=== PATIENT | female | born 1990 | race Caucasian/White ===

== ENCOUNTER 2018-02-02 10:24 | Inpatient (IN) | payer BC ==
[2018-02-02] MEDS ORDERED: Oxytocin/Lactated Ringers 10 UNIT/1,000 ML BAG IV SCH ×2 (12:00)
[2018-02-02] MEDS ORDERED: Ondansetron 4 MG/2 ML SDV IVPUSH PRN ×2 (12:00→15:28)
[2018-02-02] MEDS ORDERED: Nalbuphine 20 MG/1 ML Amp IVPUSH PRN (12:00)
[2018-02-02] MEDS ORDERED: Sodium Chloride 0.9% 10 ML Syringe FLUSH PRN (12:00)
--- NOTE | 2018-02-02 12:03 | PCM.LDHP ---
L&D History of Present Illness - General Date of Service: 02/02/18 Admit Problem/Dx: Patient Status Order with Admit Dx/Problem 02/02/18 11:01 Patient Status [ADT] Routine 02/02/18 12:01 Patient Status [ADT] Routine Admission Diagnosis/Problem Admission Diagnosis/Problem Source of Information: Patient History Limitations: Reports: No Limitations - History of Present Illness Introduction:: Patient is a 27 y/o at 37 6/7 wks who presents to L&D after clinic appointment due to findings of mild range BP in clinic. Doing well. No headaches, vision changes, or RUQ pain. No other concerns - Related Data Allergies/Adverse Reactions: Allergies Allergy/AdvReac Type Severity Reaction Status Date / Time No Known Allergies Allergy Verified 02/02/18 10:45 Past Medical History Genitourinary History: Reports: Pyelonephritis (2009) [employer] History: Reports: : 2 Para: 1 LMP (Approximate): Psychiatric History: Reports: Depression Social & Family History - Tobacco Use Smoking Status *Q: Former Smoker - Alcohol Use Alcohol Use History: No - Recreational Drug Use Recreational Drug Use: No H&P Review of Systems - Review of Systems: Review Of Systems: See Below General: Reports: No Symptoms Pulmonary: Reports: No Symptoms Cardiovascular: Reports: No Symptoms Gastrointestinal: Reports: No Symptoms Genitourinary: Reports: No Symptoms Musculoskeletal: Reports: No Symptoms Psychiatric: Reports: No Symptoms Neurological: Reports: No Symptoms L&D Exam - Exam Exam: See Below - Vital Signs Vital Signs: Last Vital Signs Temp Pulse 100 02/02/18 10:35 Resp BP 137/93 H 02/02/18 10:35 Pulse Ox Weight: 93.894 kg - OB Specific Contraction Intensity: Irritability Movement: Active Heart Tones: Present Heart Tones per Min: 140 Heart Rate (FHR) Variability: Moderate (6-25 bmp) Presentation: Vertex - Link Score Link Score Cervix Position: Posterior Link Score Consistency: Soft Link Score Effacement: 51-70% Link Score Dilation: 1-2 cm Link Score Infant's Station: -2 Link Score Total: 6 - Exam General: Alert, Oriented, Cooperative Lungs: Clear to Auscultation, Normal Respiratory Effort Cardiovascular: Regular Rate, Regular Rhythm GI/Abdominal Exam: Soft, Non-Tender Genitourinary: Normal external exam Extremities: Normal Inspection Skin: Warm, Dry, Intact - Patient Data Lab Results Last 24 hrs: Laboratory Results - last 24 hr 02/02/18 02/02/18 02/02/18 Range/Units 11:15 11:15 11:15 WBC 10.24 H (3.98-10.04) K/mm3 RBC 4.04 (3.98-5.22) M/mm3 Hgb 11.6 (11.2-15.7) gm/L Hct 34.7 (34.1-44.9) % MCV 85.9 (79.4-94.8) fl MCH 28.7 (25.6-32.2) pg MCHC 33.4 (32.2-35.5) g/dl RDW Std Deviation 41.5 (36.4-46.3) fL Plt Count 212 (182-369) K/mm3 MPV 9.5 (9.4-12.3) fl Creatinine 0.4 L (0.55-1.02) mg/dL Est Cr Clr Drug Dosing 188.42 mL/min Estimated GFR (MDRD) > 60 (>60) mL/min AST 10 L (15-37) U/L ALT 14 (14-59) U/L Urine Color (Yellow) Urine Appearance (Clear) Urine pH (5.0-8.0) Ur Specific [place] (1.005-1.030) Urine Protein (Negative) Urine Glucose (UA) (Negative) Urine Ketones (Negative) Urine Occult Blood (Negative) Urine Nitrite (Negative) Urine Bilirubin (Negative) Urine Urobilinogen (0.2-1.0) Ur Leukocyte Esterase (Negative) Blood Type O POSITIVE 02/02/18 Range/Units 11:20 WBC (3.98-10.04) K/mm3 RBC (3.98-5.22) M/mm3 Hgb (11.2-15.7) gm/L Hct (34.1-44.9) % MCV (79.4-94.8) fl MCH (25.6-32.2) pg MCHC (32.2-35.5) g/dl RDW Std Deviation (36.4-46.3) fL Plt Count (182-369) K/mm3 MPV (9.4-12.3) fl Creatinine (0.55-1.02) mg/dL Est Cr Clr Drug Dosing mL/min Estimated GFR (MDRD) (>60) mL/min AST (15-37) U/L ALT (14-59) U/L Urine Color Light yellow (Yellow) Urine Appearance Cloudy H (Clear) Urine pH 8.0 (5.0-8.0) Ur Specific [place] 1.020 (1.005-1.030) Urine Protein Negative (Negative) Urine Glucose (UA) Negative (Negative) Urine Ketones Negative (Negative) Urine Occult Blood Negative (Negative) Urine Nitrite Negative (Negative) Urine Bilirubin Negative (Negative) Urine Urobilinogen 0.2 (0.2-1.0) Ur Leukocyte Esterase 2+ H (Negative) Blood Type Result Diagrams: 02/02/18 11:15 02/02/18 11:15 - Problem List (1) 37 weeks gestation of SNOMED Code(s): 82627485 ICD Code: Z3A.37 - 37 WEEKS GESTATION OF Status: Acute Current Visit: Yes (2) Gestational hypertension SNOMED Code(s): 03708376 ICD Code: O13.9 - GESTATIONAL HTN W/O SIGNIFICANT PROTEINURIA, UNSP TRIMESTER Status: Acute Current Visit: Yes (3) Rubella non-immune status, antepartum SNOMED Code(s): 257883577 ICD Code: O99.89 - OTH DISEASES AND CONDITIONS COMPL PREG/CHLDBRTH; Z28.3 - UNDERIMMUNIZATION STATUS Status: Acute Current Visit: Yes Problem List Initiated/Reviewed/Updated: Yes Orders Last 24hrs: Active Orders 24 hr Category Date Time Status Patient Status [ADT] Routine ADT 02/02/18 11:01 Active Patient Status [ADT] Routine ADT 02/02/18 12:01 Ordered Activity as Tolerated [RC] PFP Care 02/02/18 12:00 Ordered Communication Order [RC] ASDIRECTED Care 02/02/18 12:00 Ordered Communication Order [RC] ASDIRECTED Care 02/02/18 12:00 Ordered Communication Order [RC] ASDIRECTED Care 02/02/18 12:00 Ordered Heart Tones [RC] ASDIRECTED Care 02/02/18 12:00 Ordered Monitoring [RC] INTERMITTENT Care 02/02/18 12:00 Ordered Non Stress Test [RC] PER UNIT ROUTINE Care 02/02/18 11:01 Active Notify Provider [RC] ASDIRECTED Care 02/02/18 12:00 Ordered Notify Provider [RC] PRN Care 02/02/18 12:00 Ordered Peripheral IV Care [RC] . DIRECTED Care 02/02/18 12:00 Ordered Pump Management, Intrathecal [RC] ASDIRECTED Care 02/02/18 12:00 Ordered Up ad Nancy [RC] ASDIRECTED Care 02/02/18 12:00 Ordered Vaginal Exam [RC] ASDIRECTED Care 02/02/18 12:00 Ordered Vital Signs [RC] ASDIRECTED Care 02/02/18 12:00 Ordered Vital Signs [RC] PER UNIT ROUTINE Care 02/02/18 11:01 Active Vital Signs [RC] PER UNIT ROUTINE Care 02/02/18 12:00 Ordered Regular Diet [DIET] Diet 02/02/18 Lunch Ordered PATIENT RETYPE [BBK] Routine Lab 02/02/18 11:15 Results TYPE AND SCREEN [BBK] Routine Lab 02/02/18 11:15 Received UA W/MICROSCOPIC [URIN] Routine Lab 02/02/18 11:20 Ordered Lactated Ringers [Ringers, Lactated] 1,000 ml Med 02/02/18 12:00 Ordered IV ASDIRECTED Nalbuphine [Nubain] Med 02/02/18 12:00 Ordered 10 mg IVPUSH Q2H PRN Ondansetron [Zofran] Med 02/02/18 12:00 Ordered 4 mg IVPUSH Q4H PRN Oxytocin/Lactated Ringers [Pitocin in LR 10 Units/1,000 Med 02/02/18 12:00 Ordered ML] 10 unit in 1,000 ml IV .CONTINUOUS Oxytocin/Lactated Ringers [Pitocin in LR 10 Units/1,000 Med 02/02/18 12:00 Ordered ML] 10 unit in 1,000 ml IV TITRATE Sodium Chloride 0.9% [Saline Flush] Med 02/02/18 12:00 Ordered 10 ml FLUSH ASDIRECTED PRN Electronic Heart Tones Ext w TOCO [WOMSER] Oth 02/02/18 12:00 Ordered Routine Electronic Heart Tones Internal [WOMSER] Per Unit Oth 02/02/18 12:00 Ordered Routine Peripheral IV Insertion Adult [OM.PC] Routine Oth 04/10/18 12:00 Ordered Resuscitation Status Routine Resus Stat 02/02/18 11:01 Ordered Assessment/Plan Comment:: 27 y/o at 37 6/7 wks presents for further monitoring after findings of mild range BP in clinic. Continues to have mild range pressures in addition to multiple upper and of normal blood pressures. Reviewed given current gestational age and findings over the last few weeks of upward trend in blood pressures would recommend moving forward with induction of labor for gestational hypertension. She agrees. Labs done and within normal limits. Plan for Pitocin for induction with eventual AROM as needed. GBS negative, no need for antibiotics. Pain management per patient preference. Anticipate .
[2018-02-02] MEDS: Lactated Ringers 1,000 ML IV SCH ×2 (13:15→18:15)
[2018-02-02] MEDS ORDERED: Calcium Carbonate 500 MG Tab.Chew PO PRN (14:17)
[2018-02-02] MEDS ORDERED: diphenhydrAMINE 50 MG/ML SDV IVPUSH PRN (15:28)
[2018-02-02] MEDS ORDERED: fentaNYL 100 MCG/2 ML SDV EPIDUR PRN (15:28)
[2018-02-02] MEDS ORDERED: ePHEDrine 50 MG/ML SDV IVPUSH PRN (15:28)
[2018-02-02] MEDS ORDERED: Bupivacaine/fentaNYL/NS 100 ML Bag EPIDUR SCH (15:30)
--- NOTE | 2018-02-02 15:49 | PCM.PREANE ---
Preanesthetic Assessment - Anesthesia/Transfusion/Family Hx Anesthesia History: No Prior Anesthesia Family History of Anesthesia Reaction: No - Review of Systems General: No Symptoms Pulmonary: No Symptoms Cardiovascular: No Symptoms Gastrointestinal: No Symptoms Neurological: Paresthesia Other: Reports: None - Physical Assessment Pulse: 99 O2 Sat by Pulse Oximetry: 99 Respiratory Rate: 15 Blood Pressure: 138/92 Vital Signs: Last Vital Signs Temp 36.2 C 02/02/18 11:01 Pulse 99 02/02/18 13:02 Resp BP 138/92 H 02/02/18 13:02 Pulse Ox Height: 1.65 m Weight: 93.894 kg ASA Class: 2 Mental Status: Alert & Oriented x3 Airway Class: Mallampati = 2 Dentition: Reports: Normal Dentition Thyro-Mental Finger Breadths: 3 Mouth Opening Finger Breadths: 3 ROM/Head Extension: Full Lungs: Clear to Auscultation, Normal Respiratory Effort Cardiovascular: Regular Rate, Regular Rhythm - Lab Values: Laboratory Last Values WBC 10.24 K/mm3 (3.98-10.04) H 02/02/18 11:15 RBC 4.04 M/mm3 (3.98-5.22) 02/02/18 11:15 Hgb 11.6 gm/L (11.2-15.7) 02/02/18 11:15 Hct 34.7 % (34.1-44.9) 02/02/18 11:15 MCV 85.9 fl (79.4-94.8) 02/02/18 11:15 MCH 28.7 pg (25.6-32.2) 02/02/18 11:15 MCHC 33.4 g/dl (32.2-35.5) 02/02/18 11:15 RDW Std Deviation 41.5 fL (36.4-46.3) 02/02/18 11:15 Plt Count 212 K/mm3 (182-369) 02/02/18 11:15 MPV 9.5 fl (9.4-12.3) 02/02/18 11:15 Creatinine 0.4 mg/dL (0.55-1.02) L 02/02/18 11:15 Est Cr Clr Drug Dosing 188.42 mL/min 02/02/18 11:15 Estimated GFR (MDRD) > 60 mL/min (>60) 02/02/18 11:15 AST 10 U/L (15-37) L 02/02/18 11:15 ALT 14 U/L (14-59) 02/02/18 11:15 Urine Color Light yellow (Yellow) 02/02/18 11:20 Urine Appearance Cloudy (Clear) H 02/02/18 11:20 Urine pH 8.0 (5.0-8.0) 02/02/18 11:20 Ur Specific [place] 1.020 (1.005-1.030) 02/02/18 11:20 Urine Protein Negative (Negative) 02/02/18 11:20 Urine Glucose (UA) Negative (Negative) 02/02/18 11:20 Urine Ketones Negative (Negative) 02/02/18 11:20 Urine Occult Blood Negative (Negative) 02/02/18 11:20 Urine Nitrite Negative (Negative) 02/02/18 11:20 Urine Bilirubin Negative (Negative) 02/02/18 11:20 Urine Urobilinogen 0.2 (0.2-1.0) 02/02/18 11:20 Ur Leukocyte Esterase 2+ (Negative) H 02/02/18 11:20 Urine RBC 0-5 /hpf (0-5) 02/02/18 11:20 Urine WBC 5-10 /hpf (0-5) H 02/02/18 11:20 Ur Epithelial Cells 0-5 /hpf (0-5) 02/02/18 11:20 Amorphous Sediment Moderate /hpf (NOT SEEN) H 02/02/18 11:20 Urine Bacteria Many /hpf (FEW) H 02/02/18 11:20 Urine Mucus Not seen /hpf (FEW) 02/02/18 11:20 Blood Type O POSITIVE 02/02/18 11:15 Gel Antibody Screen Negative 02/02/18 11:15 - Allergies Allergies/Adverse Reactions: Allergies Allergy/AdvReac Type Severity Reaction Status Date / Time No Known Allergies Allergy Verified 02/02/18 10:45 - Acknowledgements Anesthesia Type Planned: Epidural Pt an Appropriate Candidate for the Planned Anesthesia: Yes Alternatives and Risks of Anesthesia Discussed w Pt/Guardian: Yes Pt/Guardian Understands and Agrees with Anesthesia Plan: Yes Additional Comments: Sandei states her last epidural didn't work. She had a numb/tingling sensation to her leg, but no other pain control/numbness. PreAnesthesia Questionnaire - Past Health History Medical/Surgical History: Denies Medical/Surgical History Cardiovascular History: Reports: Hypertension Genitourinary History: Reports: Pyelonephritis (2010) [employer] History: Reports: Psychiatric History: Reports: Depression - Past Surgical History Cardiovascular Surgical History: Reports: None - SUBSTANCE USE Smoking Status *Q: Never Smoker Second Hand Smoke Exposure: No Recreational Drug Use History: No - CURRENT (IN HOUSE) MEDS Current Meds: Current Medications Calcium Carbonate/Glycine (Tums) 1,000 mg PO Q2H PRN PRN Reason: Indigestion Last Admin: 02/02/18 14:24 Dose: 1,000 mg Diphenhydramine HCl (Benadryl) 25 mg IVPUSH Q6H PRN PRN Reason: Pruritis Ephedrine Sulfate (Ephedrine Sulfate) 5 mg IVPUSH ASDIRECTED PRN PRN Reason: Hypotension Fentanyl (Sublimaze) 100 mcg EPIDUR ONETIME PRN PRN Reason: Pain Fentanyl/Bupivacaine HCl (Fentanyl/Bupivacaine/Ns 2 Mcg-0.125% 100 Ml) 100 ml EPIDUR ASDIRECTED MARIKA Lactated Ringer's (Ringers, Lactated) 1,000 mls @ 40 mls/hr IV ASDIRECTED MARIKA Last Admin: 02/02/18 13:15 Dose: 40 mls/hr Oxytocin/Lactated Ringer's (Pitocin In Lr 10 Units/1,000 Ml) 10 unit in 1,000 mls @ 12 mls/hr IV TITRATE MARIKA; Protocol Last Titration: 02/02/18 15:05 Dose: 6 munits/min, 36 mls/hr Oxytocin/Lactated Ringer's (Pitocin In Lr 10 Units/1,000 Ml) 10 unit in 1,000 mls @ 500 mls/hr IV .CONTINUOUS MARIKA Nalbuphine HCl (Nubain) 10 mg IVPUSH Q2H PRN PRN Reason: Pain (moderate 4-6) Ondansetron HCl (Zofran) 4 mg IVPUSH Q4H PRN PRN Reason: Nausea/Vomiting Ondansetron HCl (Zofran) 4 mg IVPUSH ONETIME PRN PRN Reason: Nausea/Vomiting Sodium Chloride (Saline Flush) 10 ml FLUSH ASDIRECTED PRN PRN Reason: Keep Vein Open Last Admin: 02/02/18 13:15 Dose: 10 ml
--- NOTE | 2018-02-02 16:24 | PCM.PNLD ---
Labor Progress Note - VS & Meds Vital Signs: Last Vital Signs Temp 36.2 C 02/02/18 11:01 Pulse 99 02/02/18 15:49 Resp 15 02/02/18 15:49 BP 138/92 H 02/02/18 15:49 Pulse Ox 99 02/02/18 15:49 Active Medications: Current Medications Calcium Carbonate/Glycine (Tums) 1,000 mg PO Q2H PRN PRN Reason: Indigestion Last Admin: 02/02/18 14:24 Dose: 1,000 mg Diphenhydramine HCl (Benadryl) 25 mg IVPUSH Q6H PRN PRN Reason: Pruritis Ephedrine Sulfate (Ephedrine Sulfate) 5 mg IVPUSH ASDIRECTED PRN PRN Reason: Hypotension Fentanyl (Sublimaze) 100 mcg EPIDUR ONETIME PRN PRN Reason: Pain Fentanyl/Bupivacaine HCl (Fentanyl/Bupivacaine/Ns 2 Mcg-0.125% 100 Ml) 100 ml EPIDUR ASDIRECTED MARIKA Lactated Ringer's (Ringers, Lactated) 1,000 mls @ 40 mls/hr IV ASDIRECTED MARIKA Last Admin: 02/02/18 13:15 Dose: 40 mls/hr Oxytocin/Lactated Ringer's (Pitocin In Lr 10 Units/1,000 Ml) 10 unit in 1,000 mls @ 12 mls/hr IV TITRATE MARIKA; Protocol Last Titration: 02/02/18 16:03 Dose: 8 munits/min, 48 mls/hr Oxytocin/Lactated Ringer's (Pitocin In Lr 10 Units/1,000 Ml) 10 unit in 1,000 mls @ 500 mls/hr IV .CONTINUOUS MARIKA Nalbuphine HCl (Nubain) 10 mg IVPUSH Q2H PRN PRN Reason: Pain (moderate 4-6) Ondansetron HCl (Zofran) 4 mg IVPUSH Q4H PRN PRN Reason: Nausea/Vomiting Ondansetron HCl (Zofran) 4 mg IVPUSH ONETIME PRN PRN Reason: Nausea/Vomiting Sodium Chloride (Saline Flush) 10 ml FLUSH ASDIRECTED PRN PRN Reason: Keep Vein Open Last Admin: 02/02/18 13:15 Dose: 10 ml - Uterine Contractions Uterine Monitoring Mode: External [place] Contraction Intensity: Mild to Moderate Uterine Resting Tone: Soft - Monitoring Monitor Mode: External Ultrasound Heart Rate (FHR) Baseline: 130 Heart Rate (FHR) Variability: Moderate (6-25 bmp) Accelerations: Present, 15x15 Decelerations: None - Vaginal Exam Dilation (cm): 3 Effacement (Percent): 70 Station: -2 Cervical Position: Posterior - Labor Progress (Free Text) Labor Progress: Doing well. Pitocin at 8. AROM performed with release of clear fluid. Pressure continue to be mild range. Continue present management
[2018-02-03] MEDS ORDERED: fentaNYL 100 MCG/2 ML SDV ONE (01:45)
[2018-02-03] MEDS ORDERED: Bupivacaine 0.25% 10 ML SDV ONE (02:00)
[2018-02-03] MEDS ORDERED: ePHEDrine 50 MG/ML SDV ONE (02:00)
[2018-02-03] MEDS ORDERED: fentaNYL 100 MCG/2 ML SDV EPIDUR PRN (02:07)
--- NOTE | 2018-02-03 02:44 | PCM.DEL ---
L & D Note - General Info Date of Service: 02/03/18 - Delivery Note Labor: Induced by ARM, Induced by Oxytocin Delivery Outcome: Livebirth Infant Delivery Method: Spontaneous Vaginal Delivery-Single Infant Delivery Mode: Spontaneous Presentation: Right Occiput Anterior (KALIN) Nuchal Cord: Present (Tight, not reduced) Anesthesia Type: Epidural Amniotic Fluid Description: Clear Episiotomy Type: None Laceration: 1st Degree Suture type: Vicryl Suture size: 2-0 Placenta: Intact, Spontaneous Cord: 3 Vessels Estimated Blood Loss: 350 Resuscitation Needed: Yes [place]: Bulb Syringe, Stimulated, Warmed, [place] Used, Warmer Used Score 1 min: 6 Score 5 min: 9 Delivery Comments (Free Text/Narrative):: Patient found to be complete and began pushing. With maternal pushing effort head delivered from an KALIN presentation. Tight nuchal cord present and so not reduced. With gentle downward tractions the shoulders and body delivered. Infant placed on maternal abdomen. Cord clamped and cut. Cord blood obtained. Placenta allowed time to separate and then expelled intact. Inspection of the perineum showed a 1st degree laceration which was bleeding briskly. Hemostasis obtained with a single interrupted suture of 0 vicryl placed in a figure of eight fashion - Patient Data Vitals - Most Recent: Last Vital Signs Temp 36.2 C 02/02/18 11:01 Pulse 99 02/02/18 15:49 Resp 15 02/02/18 15:49 BP 138/92 H 02/02/18 15:49 Pulse Ox 99 02/02/18 15:49 Weight - Most Recent: 93.894 kg I&O - Last 24 Hours: Intake & Output 02/02/18 02/02/18 02/03/18 14:59 22:59 06:59 Intake Total 120 Balance 120 Lab Results Last 24 Hours: Laboratory Results - last 24 hr 02/02/18 02/02/18 02/02/18 Range/Units 11:15 11:15 11:15 WBC 10.24 H (3.98-10.04) K/mm3 RBC 4.04 (3.98-5.22) M/mm3 Hgb 11.6 (11.2-15.7) gm/L Hct 34.7 (34.1-44.9) % MCV 85.9 (79.4-94.8) fl MCH 28.7 (25.6-32.2) pg MCHC 33.4 (32.2-35.5) g/dl RDW Std Deviation 41.5 (36.4-46.3) fL Plt Count 212 (182-369) K/mm3 MPV 9.5 (9.4-12.3) fl Creatinine 0.4 L (0.55-1.02) mg/dL Est Cr Clr Drug Dosing 188.42 mL/min Estimated GFR (MDRD) > 60 (>60) mL/min AST 10 L (15-37) U/L ALT 14 (14-59) U/L Urine Color (Yellow) Urine Appearance (Clear) Urine pH (5.0-8.0) Ur Specific [place] (1.005-1.030) Urine Protein (Negative) Urine Glucose (UA) (Negative) Urine Ketones (Negative) Urine Occult Blood (Negative) Urine Nitrite (Negative) Urine Bilirubin (Negative) Urine Urobilinogen (0.2-1.0) Ur Leukocyte Esterase (Negative) Urine RBC (0-5) /hpf Urine WBC (0-5) /hpf Ur Epithelial Cells (0-5) /hpf Amorphous Sediment (NOT SEEN) /hpf Urine Bacteria (FEW) /hpf Urine Mucus (FEW) /hpf Blood Type O POSITIVE Gel Antibody Screen Negative 02/02/18 Range/Units 11:20 WBC (3.98-10.04) K/mm3 RBC (3.98-5.22) M/mm3 Hgb (11.2-15.7) gm/L Hct (34.1-44.9) % MCV (79.4-94.8) fl MCH (25.6-32.2) pg MCHC (32.2-35.5) g/dl RDW Std Deviation (36.4-46.3) fL Plt Count (182-369) K/mm3 MPV (9.4-12.3) fl Creatinine (0.55-1.02) mg/dL Est Cr Clr Drug Dosing mL/min Estimated GFR (MDRD) (>60) mL/min AST (15-37) U/L ALT (14-59) U/L Urine Color Light yellow (Yellow) Urine Appearance Cloudy H (Clear) Urine pH 8.0 (5.0-8.0) Ur Specific [place] 1.020 (1.005-1.030) Urine Protein Negative (Negative) Urine Glucose (UA) Negative (Negative) Urine Ketones Negative (Negative) Urine Occult Blood Negative (Negative) Urine Nitrite Negative (Negative) Urine Bilirubin Negative (Negative) Urine Urobilinogen 0.2 (0.2-1.0) Ur Leukocyte Esterase 2+ H (Negative) Urine RBC 0-5 (0-5) /hpf Urine WBC 5-10 H (0-5) /hpf Ur Epithelial Cells 0-5 (0-5) /hpf Amorphous Sediment Moderate H (NOT SEEN) /hpf Urine Bacteria Many H (FEW) /hpf Urine Mucus Not seen (FEW) /hpf Blood Type Gel Antibody Screen Med Orders - Current: Current Medications Calcium Carbonate/Glycine (Tums) 1,000 mg PO Q2H PRN PRN Reason: Indigestion Last Admin: 02/02/18 14:24 Dose: 1,000 mg Diphenhydramine HCl (Benadryl) 25 mg IVPUSH Q6H PRN PRN Reason: Pruritis Ephedrine Sulfate (Ephedrine Sulfate) 5 mg IVPUSH ASDIRECTED PRN PRN Reason: Hypotension Fentanyl (Sublimaze) 100 mcg EPIDUR ONETIME PRN PRN Reason: Pain Fentanyl/Bupivacaine HCl (Fentanyl/Bupivacaine/Ns 2 Mcg-0.125% 100 Ml) 100 ml EPIDUR ASDIRECTED MARIKA Fentanyl/Bupivacaine HCl (Fentanyl/Bupivacaine/Ns 2.5 Mcg-0.1% 50 Ml) 50 ml EPIDUR ASDIRECTED MARIKA Lactated Ringer's (Ringers, Lactated) 1,000 mls @ 40 mls/hr IV ASDIRECTED MARIKA Last Admin: 02/02/18 18:15 Dose: 125 mls/hr Oxytocin/Lactated Ringer's (Pitocin In Lr 10 Units/1,000 Ml) 10 unit in 1,000 mls @ 12 mls/hr IV TITRATE MARIKA; Protocol Last Titration: 02/02/18 18:14 Dose: 10 munits/min, 60 mls/hr Oxytocin/Lactated Ringer's (Pitocin In Lr 10 Units/1,000 Ml) 10 unit in 1,000 mls @ 500 mls/hr IV .CONTINUOUS MARIKA Nalbuphine HCl (Nubain) 10 mg IVPUSH Q2H PRN PRN Reason: Pain (moderate 4-6) Ondansetron HCl (Zofran) 4 mg IVPUSH Q4H PRN PRN Reason: Nausea/Vomiting Ondansetron HCl (Zofran) 4 mg IVPUSH ONETIME PRN PRN Reason: Nausea/Vomiting Sodium Chloride (Saline Flush) 10 ml FLUSH ASDIRECTED PRN PRN Reason: Keep Vein Open Last Admin: 02/02/18 13:15 Dose: 10 ml Discontinued Medications Fentanyl (Sublimaze) 100 mcg EPIDUR ONETIME PRN PRN Reason: Pain Last Admin: 02/02/18 20:43 Dose: 100 mcg Fentanyl (Sublimaze) Confirm Administered Dose 100 mcg .ROUTE .STK-MED ONE Stop: 02/03/18 01:46 Last Admin: 02/03/18 02:10 Dose: 100 mcg - Problem List & Annotations (1) 37 weeks gestation of SNOMED Code(s): 35178287 Code(s): Z3A.37 - 37 WEEKS GESTATION OF Status: Acute Current Visit: Yes (2) Gestational hypertension SNOMED Code(s): 06048107 Code(s): O13.9 - GESTATIONAL HTN W/O SIGNIFICANT PROTEINURIA, UNSP TRIMESTER Status: Acute Current Visit: Yes (3) Rubella non-immune status, antepartum SNOMED Code(s): 734490751 Code(s): O99.89 - OTH DISEASES AND CONDITIONS COMPL PREG/CHLDBRTH; Z28.3 - UNDERIMMUNIZATION STATUS Status: Acute Current Visit: Yes (4) Vaginal delivery SNOMED Code(s): 004224963 Code(s): O80 - ENCOUNTER FOR FULL-TERM UNCOMPLICATED DELIVERY Status: Acute Current Visit: Yes - Problem List Review Problem List Initiated/Reviewed/Updated: Yes - My Orders Last 24 Hours: My Active Orders 02/02/18 11:01 Vital Signs [RC] PER UNIT ROUTINE Resuscitation Status Routine 02/02/18 11:20 UA W/MICROSCOPIC [URIN] Routine 02/02/18 12:00 Communication Order [RC] ASDIRECTED Communication Order [RC] ASDIRECTED Communication Order [RC] ASDIRECTED Heart Tones [RC] ASDIRECTED Monitoring [RC] INTERMITTENT Notify Provider [RC] ASDIRECTED Notify Provider [RC] PRN Peripheral IV Care [RC] Q2HR Pump Management, Intrathecal [RC] ASDIRECTED Up ad Nancy [RC] ASDIRECTED Vaginal Exam [RC] ASDIRECTED Lactated Ringers [Ringers, Lactated] 1,000 ml IV ASDIRECTED Nalbuphine [Nubain] 10 mg IVPUSH Q2H PRN Ondansetron [Zofran] 4 mg IVPUSH Q4H PRN Oxytocin/Lactated Ringers [Pitocin in LR 10 Units/1,000 ML] 10 unit in 1,000 ml IV .CONTINUOUS Oxytocin/Lactated Ringers [Pitocin in LR 10 Units/1,000 ML] 10 unit in 1,000 ml IV TITRATE Sodium Chloride 0.9% [Saline Flush] 10 ml FLUSH ASDIRECTED PRN Electronic Heart Tones Ext w TOCO [WOMSER] Routine Electronic Heart Tones Internal [WOMSER] Per Unit Routine Peripheral IV Insertion Adult [OM.PC] Routine 02/02/18 12:01 Patient Status [ADT] Routine 02/02/18 14:17 Calcium Carbonate [Tums] 1,000 mg PO Q2H PRN 02/02/18 Lunch Regular Diet [DIET] 02/03/18 02:42 Patient Status Manage Transfer [TRANSFER] Routine - Assessment Assessment:: 27 y/o G2 now P2002 PPD#0 from at 38 0/7 wks - Plan Plan:: * Continue to monitor BP's closely * Routine cares * Encourage breast feeding * Discharge home in 1-2 days
[2018-02-03] MEDS ORDERED: Acetaminophen 325 MG Tab PO PRN (03:46)
[2018-02-03] MEDS ORDERED: Docusate Sodium 100 MG Cap PO PRN (03:46)
[2018-02-03] MEDS ORDERED: Benzocaine/Menthol 20%-0.5% Spray 56 GM Canister TOP PRN (03:46)
[2018-02-03] MEDS ORDERED: Lanolin 100% Cream 7 GM Tube TOP PRN (03:46)
[2018-02-03] MEDS ORDERED: Ibuprofen 600 MG Tab PO PRN (03:46)
[2018-02-03] MEDS ORDERED: Witch Hazel Medicated Pads 100/Jar TOP PRN (03:46)
[2018-02-03] MEDS: fentaNYL/Bupivacaine in NS PF 2.5 MCG/ML-0.1% 50 ML Syringe EPIDUR SCH (04:52)
[2018-02-03] MEDS ORDERED: Measles, Mumps & Rubella Vaccine 0.5 ML SDV SUBCUT ONE (23:34)
--- NOTE | 2018-02-04 07:12 | PCM.PNPP ---
- General Info Date of Service: 02/04/18 Functional Status: Reports: Pain Controlled, Tolerating Diet, Ambulating, Urinating - Review of Systems General: Reports: No Symptoms Pulmonary: Reports: No Symptoms Cardiovascular: Reports: No Symptoms Gastrointestinal: Reports: No Symptoms Genitourinary: Reports: No Symptoms Musculoskeletal: Reports: No Symptoms Neurological: Reports: No Symptoms - Patient Data Vital Signs - Most Recent: Last Vital Signs Temp 36.5 C 02/04/18 04:42 Pulse 89 02/04/18 04:42 Resp 16 02/04/18 04:42 BP 139/90 02/04/18 04:42 Pulse Ox 100 02/04/18 04:42 Weight - Most Recent: 93.894 kg Med Orders - Current: Current Medications Acetaminophen (Tylenol) 650 mg PO Q4H PRN PRN Reason: mild pain or fever Benzocaine/Menthol (Dermoplast Pain Relief [place]) 0 gm TOP ASDIRECTED PRN PRN Reason: Perineal Comfort Measure Last Admin: 02/03/18 10:17 Dose: 1 can Docusate Sodium (Colace) 100 mg PO BID PRN PRN Reason: Constipation Emollient Ointment (Lansinoh Hpa) 0 gm TOP ASDIRECTED PRN PRN Reason: Sore Nipples Ibuprofen (Motrin) 600 mg PO Q6H PRN PRN Reason: Mild pain or fever Last Admin: 02/03/18 10:16 Dose: 600 mg Witch Negin (Tucks) 1 pad TOP ASDIRECTED PRN PRN Reason: Hemorrhoid pain Discontinued Medications Bupivacaine HCl (Sensorcaine-Mpf 0.25%) 10 ml .ROUTE .STK-MED ONE Stop: 02/03/18 02:01 Calcium Carbonate/Glycine (Tums) 1,000 mg PO Q2H PRN PRN Reason: Indigestion Last Admin: 02/02/18 14:24 Dose: 1,000 mg Diphenhydramine HCl (Benadryl) 25 mg IVPUSH Q6H PRN PRN Reason: Pruritis Ephedrine Sulfate (Ephedrine Sulfate) 5 mg IVPUSH ASDIRECTED PRN PRN Reason: Hypotension Ephedrine Sulfate (Ephedrine Sulfate) 50 mg .ROUTE .STK-MED ONE Stop: 02/03/18 02:01 Fentanyl (Sublimaze) 100 mcg EPIDUR ONETIME PRN PRN Reason: Pain Last Admin: 02/02/18 20:43 Dose: 100 mcg Fentanyl (Sublimaze) Confirm Administered Dose 100 mcg .ROUTE .STK-MED ONE Stop: 02/03/18 01:46 Last Admin: 02/03/18 02:10 Dose: 100 mcg Fentanyl (Sublimaze) 100 mcg EPIDUR ONETIME PRN PRN Reason: Pain Fentanyl/Bupivacaine HCl (Fentanyl/Bupivacaine/Ns 2 Mcg-0.125% 100 Ml) 100 ml EPIDUR ASDIRECTED MARIKA Fentanyl/Bupivacaine HCl (Fentanyl/Bupivacaine/Ns 2.5 Mcg-0.1% 50 Ml) 50 ml EPIDUR ASDIRECTED MARIKA Last Admin: 02/03/18 04:52 Dose: 50 ml Lactated Ringer's (Ringers, Lactated) 1,000 mls @ 40 mls/hr IV ASDIRECTED MARIKA Last Infusion: 02/02/18 20:44 Dose: 125 mls/hr Oxytocin/Lactated Ringer's (Pitocin In Lr 10 Units/1,000 Ml) 10 unit in 1,000 mls @ 12 mls/hr IV TITRATE MARIKA; Protocol Last Titration: 02/02/18 18:14 Dose: 10 munits/min, 60 mls/hr Oxytocin/Lactated Ringer's (Pitocin In Lr 10 Units/1,000 Ml) 10 unit in 1,000 mls @ 500 mls/hr IV .CONTINUOUS MARIKA Measles/Mumps/Rubella Vaccine Live (M-M-R Ii Vaccine) 0.5 ml SUBCUT .ONCE ONE Stop: 02/03/18 23:35 Last Admin: 02/04/18 03:47 Dose: 0.5 ml Nalbuphine HCl (Nubain) 10 mg IVPUSH Q2H PRN PRN Reason: Pain (moderate 4-6) Ondansetron HCl (Zofran) 4 mg IVPUSH Q4H PRN PRN Reason: Nausea/Vomiting Ondansetron HCl (Zofran) 4 mg IVPUSH ONETIME PRN PRN Reason: Nausea/Vomiting Sodium Chloride (Saline Flush) 10 ml FLUSH ASDIRECTED PRN PRN Reason: Keep Vein Open Last Admin: 02/02/18 13:15 Dose: 10 ml - Interaction Infant Disposition, : [place] in Room with Family Interaction: Holding Infant Feeding: Breastfed Infant; Nursed Well Support Person: - Recovery Exam Fundal Tone: Firm Fundal Level: At Umbilicus Fundal Placement: Midline Lochia Amount: Small Lochia Color: Rubra/Red Perineum Description: Edematous Episiotomy/Laceration: Approximated Bladder Status: Voiding - Exam General: Alert, Oriented, Cooperative GI/Abdominal Exam: Soft, Non-Tender Extremities: Normal Inspection Skin: Warm, Dry, Intact - Problem List & Annotations (1) 37 weeks gestation of SNOMED Code(s): 36858775 Code(s): Z3A.37 - 37 WEEKS GESTATION OF Status: Acute (2) Gestational hypertension SNOMED Code(s): 16030672 Code(s): O13.9 - GESTATIONAL HTN W/O SIGNIFICANT PROTEINURIA, UNSP TRIMESTER Status: Acute Qualifiers: Trimester: third trimester Qualified Code(s): O13.3 - Gestational [ -induced] hypertension without significant proteinuria, third trimester (3) Rubella non-immune status, antepartum SNOMED Code(s): 735854637 Code(s): O99.89 - OTH DISEASES AND CONDITIONS COMPL PREG/CHLDBRTH; Z28.3 - UNDERIMMUNIZATION STATUS Status: Acute (4) Vaginal delivery SNOMED Code(s): 120484671 Code(s): O80 - ENCOUNTER FOR FULL-TERM UNCOMPLICATED DELIVERY Status: Acute - Problem List Review Problem List Initiated/Reviewed/Updated: Yes - My Orders Last 24 Hours: My Active Orders 02/03/18 23:35 Vaccines to be Administered [RC] PER UNIT ROUTINE 02/03/18 Breakfast Regular Diet [DIET] 02/04/18 03:46 Heat Therapy [OM.PC] PRN - Assessment Assessment:: 27 y/o G2 now P2002 PPD#1 from at 38 0/7 wks - Plan Plan:: * Continue to monitor BP's closely. Follow up BP check in 1-2 weeks for BP check * Routine cares * Encourage breast feeding * Discharge home today
--- NOTE | 2018-02-04 07:15 | PCM.DCSUM1 ---
Discharge Summary - Discharge Data Discharge Date: 02/04/18 Discharge Disposition: Home, Self-Care 01 Condition: Good - Discharge Diagnosis/Problem(s) (1) 37 weeks gestation of SNOMED Code(s): 37409726 ICD Code: Z3A.37 - 37 WEEKS GESTATION OF Status: Acute (2) Gestational hypertension SNOMED Code(s): 80523790 ICD Code: O13.9 - GESTATIONAL HTN W/O SIGNIFICANT PROTEINURIA, UNSP TRIMESTER Status: Acute Qualifiers: Trimester: third trimester Qualified Code(s): O13.3 - Gestational [ -induced] hypertension without significant proteinuria, third trimester (3) Rubella non-immune status, antepartum SNOMED Code(s): 340132999 ICD Code: O99.89 - OTH DISEASES AND CONDITIONS COMPL PREG/CHLDBRTH; Z28.3 - UNDERIMMUNIZATION STATUS Status: Acute (4) Vaginal delivery SNOMED Code(s): 387714484 ICD Code: O80 - ENCOUNTER FOR FULL-TERM UNCOMPLICATED DELIVERY Status: Acute - Patient Summary/Data Complications: None Consults: None Recommended Follow-up Testing/Procedures: Follow up in 1-2 weeks for BP check and in 5-6 weeks for check Hospital Course: Patient is a 27-year-old who presented to clinic at 37-6/7 weeks gestation was found to have mild range pressures. She was sent to labor and delivery where these findings persisted. She was kept and induction started for gestational hypertension. Induction was done with Pitocin and AROM. Patient did well and progressed to complete dilation. She will underwent an uncomplicated vaginal delivery. See delivery note for full details. she did well and was discharged home on day #1. - Patient Instructions Diet: Regular Diet as Tolerated Activity: As Tolerated Activity, Other: Pelvic Rest for 6 weeks Driving: May Drive Today Showering/Bathing: May Shower Showering/Bathing, Other: May Bathe Notify Provider of: Fever, Increased Pain, Swelling and Redness, Drainage, Nausea and/or Vomiting - Discharge Plan Home Medications: Home Meds Docusate Sodium [Colace] 100 mg PO BID PRN cap 02/04/18 [Rx] Ibuprofen [IJD: Ibuprofen] 600 mg PO Q6H PRN tablet 02/04/18 [Rx] Patient Handouts: Home Care Instructions for Mom Referrals: Alaina Kirkland MD [Primary Care Provider] - (2 weeks for BP check ) - Discharge Summary/Plan Comment DC Time >30 min.: No - Patient Data Vitals - Most Recent: Last Vital Signs Temp 36.5 C 02/04/18 04:42 Pulse 89 02/04/18 04:42 Resp 16 02/04/18 04:42 BP 139/90 02/04/18 04:42 Pulse Ox 100 02/04/18 04:42 Weight - Most Recent: 93.894 kg Med Orders - Current: Current Medications Acetaminophen (Tylenol) 650 mg PO Q4H PRN PRN Reason: mild pain or fever Benzocaine/Menthol (Dermoplast Pain Relief [place]) 0 gm TOP ASDIRECTED PRN PRN Reason: Perineal Comfort Measure Last Admin: 02/03/18 10:17 Dose: 1 can Docusate Sodium (Colace) 100 mg PO BID PRN PRN Reason: Constipation Emollient Ointment (Lansinoh Hpa) 0 gm TOP ASDIRECTED PRN PRN Reason: Sore Nipples Ibuprofen (Motrin) 600 mg PO Q6H PRN PRN Reason: Mild pain or fever Last Admin: 02/03/18 10:16 Dose: 600 mg Witch Negin (Tucks) 1 pad TOP ASDIRECTED PRN PRN Reason: Hemorrhoid pain Discontinued Medications Bupivacaine HCl (Sensorcaine-Mpf 0.25%) 10 ml .ROUTE .STK-MED ONE Stop: 02/03/18 02:01 Calcium Carbonate/Glycine (Tums) 1,000 mg PO Q2H PRN PRN Reason: Indigestion Last Admin: 02/02/18 14:24 Dose: 1,000 mg Diphenhydramine HCl (Benadryl) 25 mg IVPUSH Q6H PRN PRN Reason: Pruritis Ephedrine Sulfate (Ephedrine Sulfate) 5 mg IVPUSH ASDIRECTED PRN PRN Reason: Hypotension Ephedrine Sulfate (Ephedrine Sulfate) 50 mg .ROUTE .STK-MED ONE Stop: 02/03/18 02:01 Fentanyl (Sublimaze) 100 mcg EPIDUR ONETIME PRN PRN Reason: Pain Last Admin: 02/02/18 20:43 Dose: 100 mcg Fentanyl (Sublimaze) Confirm Administered Dose 100 mcg .ROUTE .STK-MED ONE Stop: 02/03/18 01:46 Last Admin: 02/03/18 02:10 Dose: 100 mcg Fentanyl (Sublimaze) 100 mcg EPIDUR ONETIME PRN PRN Reason: Pain Fentanyl/Bupivacaine HCl (Fentanyl/Bupivacaine/Ns 2 Mcg-0.125% 100 Ml) 100 ml EPIDUR ASDIRECTED MARIKA Fentanyl/Bupivacaine HCl (Fentanyl/Bupivacaine/Ns 2.5 Mcg-0.1% 50 Ml) 50 ml EPIDUR ASDIRECTED MARIKA Last Admin: 02/03/18 04:52 Dose: 50 ml Lactated Ringer's (Ringers, Lactated) 1,000 mls @ 40 mls/hr IV ASDIRECTED MARIKA Last Infusion: 02/02/18 20:44 Dose: 125 mls/hr Oxytocin/Lactated Ringer's (Pitocin In Lr 10 Units/1,000 Ml) 10 unit in 1,000 mls @ 12 mls/hr IV TITRATE MARIKA; Protocol Last Titration: 02/02/18 18:14 Dose: 10 munits/min, 60 mls/hr Oxytocin/Lactated Ringer's (Pitocin In Lr 10 Units/1,000 Ml) 10 unit in 1,000 mls @ 500 mls/hr IV .CONTINUOUS MARIKA Measles/Mumps/Rubella Vaccine Live (M-M-R Ii Vaccine) 0.5 ml SUBCUT .ONCE ONE Stop: 02/03/18 23:35 Last Admin: 02/04/18 03:47 Dose: 0.5 ml Nalbuphine HCl (Nubain) 10 mg IVPUSH Q2H PRN PRN Reason: Pain (moderate 4-6) Ondansetron HCl (Zofran) 4 mg IVPUSH Q4H PRN PRN Reason: Nausea/Vomiting Ondansetron HCl (Zofran) 4 mg IVPUSH ONETIME PRN PRN Reason: Nausea/Vomiting Sodium Chloride (Saline Flush) 10 ml FLUSH ASDIRECTED PRN PRN Reason: Keep Vein Open Last Admin: 02/02/18 13:15 Dose: 10 ml
== END 2018-02-04 10:30 | disposition home or self-care (01) | DRG 560 ==
LOC: JD.OBCHECK 10:24 → JD.OB 10:26 → JD.OBCHECK 12:00 → JD.OB 12:01 → OBSVTOIN 02-03 02:46 → JD.OB 02-03 02:49
PROVIDERS: ADMIT Obstetrics & Gynecology; ATTEND Obstetrics & Gynecology
PROC: 10E0XZZ Delivery of Products of Conception, External Approach (ICD-10-PCS; principal; 2018-02-03)
PROC: 10907ZC Drainage of Amniotic Fluid, Therapeutic from Products of Conception, Via Natural or Artificial Opening (ICD-10-PCS; 2018-02-03)
PROC: 0HQ9XZZ Repair Perineum Skin, External Approach (ICD-10-PCS; 2018-02-03)
PROC: 3E033VJ Introduction of Other Hormone into Peripheral Vein, Percutaneous Approach (ICD-10-PCS; 2018-02-03)
PROC: 00HU33Z Insertion of Infusion Device into Spinal Canal, Percutaneous Approach (ICD-10-PCS; 2018-02-03)
PROC: 3E0R3BZ Introduction of Anesthetic Agent into Spinal Canal, Percutaneous Approach (ICD-10-PCS; 2018-02-03)
PROC: 3E0234Z Introduction of Serum, Toxoid and Vaccine into Muscle, Percutaneous Approach (ICD-10-PCS; 2018-02-04)
DX: O13.4 Gestational [pregnancy-induced] hypertension without significant proteinuria, complicating childbirth (principal); O69.1XX0 Labor and delivery complicated by cord around neck, with compression, not applicable or unspecified; O70.0 First degree perineal laceration during delivery; Z3A.37 37 weeks gestation of pregnancy; Z37.0 Single live birth; Z87.891 Personal history of nicotine dependence; Z23 Encounter for immunization; Z28.3 Underimmunization status
CPT/HCPCS: 36415; 51702; 59025; 59300; 59409; 81001; 82565; 84450; 84460; 85027; 86850; 86900; 86901; 90471; 90707; A9270-GY; J2590; J3010; J7050; J7120